=== PATIENT | male | born 1985 | race Caucasian/White ===

== ENCOUNTER 2020-12-30 05:40 | Inpatient (IN) | payer MEDICAID, SELFPAY ==
[~2020-12-30] VITALS: Ht 165.1 cm; Wt 90.3 kg
[2020-12-30 05:45] VITALS: BP 122/62
[2020-12-30] MEDS ORDERED: ONDANSETRON 4 MG/2 ML VIAL IVP ONE (05:45)
[2020-12-30] MEDS ORDERED: MORPHINE SULFATE 4 MG/ML SYR IVP ONE ×2 (05:45→07:15)
[2020-12-30 05:59] LABS: BASOPHILS # (AUTO) 0.1 K/uL (0.00-0.22); BASOPHILS % (AUTO) 0.5 % (0.0-2.0); EOSINOPHILS % (AUTO) 0.2 % (0.0-4.0); HEMATOCRIT 41.8 % (36-52); HEMOGLOBIN 14.3 g/dL (12.0-18.0); LYMPHOCYTES # (AUTO) 1.6 K/uL (2.0-11.5); LYMPHOCYTES % (AUTO) 10.7 % (20.5-51.1); MEAN CORPUSCULAR HEMOGLOBIN 29 pg (27-31); MEAN CORPUSCULAR HGB CONC 34 g/dL (33-37); MEAN CORPUSCULAR VOLUME 85.9 fL (80-94); MONOCYTES # (AUTO) 1.5 K/uL (0.8-1.0); MONOCYTES % (AUTO) 9.8 % (1.7-9.3); NEUTROPHILS # (AUTO) 11.9 K/uL (1.8-7.7); NEUTROPHILS % (AUTO) 78.8 % (42.2-75.2); PLATELET COUNT (AUTO) 365 K/uL (140-450); RED BLOOD CELL COUNT(AUTO) 4.87 MIL/uL (4.20-6.10); RED CELL DISTRIBUTION WIDTH 13.7 % (11.6-13.7); WHITE BLOOD COUNT (AUTO) 15.1 K/uL (4.8-10.8)
[2020-12-30 06:14] LABS: ALBUMIN 3.4 g/dL (3.4-5.0); ANION GAP 13.8 (8-16); CARBON DIOXIDE 25.1 mmol/L (21-32); CREATININE 1.1 mg/dL (0.6-1.3); POTASSIUM 3.9 mmol/L (3.5-5.1); TOTAL BILIRUBIN 0.6 mg/dL (0.0-1.0)
--- NOTE | 2020-12-30 06:22 | NUR ---
PT PRESENTED TO THE ED VIA DANE GILMORE OF ABDOMINAL PAIN, WITH SHARP GEN PAIN IN ABD W/ PAINSCALE OF 10 OF 10, ABD SOFT ROUND AND TENDER TO TOUCH, PT ST, NO OTHER SIGNS OF ACUTE DISTRESS NOTED NO PMH NKA
[2020-12-30] MEDS ORDERED: PIPERACILLIN/TAZOBACTAM 3.375 GM in DEXTROSE 5% 50 ML IV ONE (06:35)
[2020-12-30] MEDS ORDERED: PIPERACILLIN/TAZOBACTAM 3.375 GM VIAL IV ONE (06:37)
[2020-12-30] MEDS ORDERED: NACL 0.9% 1,000 ML IV ONE (06:40)
--- NOTE | 2020-12-30 06:47 | NUR ---
ADMINISTERED ERMD MED ORDERS
[2020-12-30 07:03] LABS: PROTHROMBIN TIME 10.2 secs (10.8-13.4)
--- NOTE | 2020-12-30 07:18 | NUR ---
LUBA SWAB DONE. WALKED TO LAB.
[2020-12-30] MEDS ORDERED: fentaNYL citrate 0.05 MG/ML VIAL ONE (07:22)
[2020-12-30] MEDS ORDERED: ROCURONIUM 50 MG/5 ML VIAL IV ONE ×2 (07:22→09:20)
[2020-12-30] MEDS ORDERED: MEPERIDINE 25 MG/ML SYR ONE (07:22)
[2020-12-30] MEDS ORDERED: LIDOCAINE MPF 2% 100 MG/5 ML VIAL INJ ONE (07:22)
[2020-12-30] MEDS ORDERED: SUCCINYLCHOLINE CHLORIDE 200 MG/10 ML VIAL IVP ONE (07:23)
[2020-12-30] MEDS ORDERED: KETOROLAC 30 MG/ML VIAL ONE (07:23)
[2020-12-30] MEDS ORDERED: METOCLOPRAMIDE 10 MG/2 ML INJ VIAL ONE (07:23)
[2020-12-30] MEDS ORDERED: ONDANSETRON 4 MG/2 ML VIAL ONE (07:23)
[2020-12-30] MEDS ORDERED: GLYCOPYRROLATE 0.2 MG/ML VIAL ONE (07:23)
[2020-12-30] MEDS ORDERED: NEOSTIGMINE 1:1000 10 MG/10 ML VIAL ONE (07:24)
[2020-12-30] MEDS ORDERED: BUPIVACAINE-MPF/EPI 0.5% 30 ML VIAL INJ ONE (07:32)
[2020-12-30] MEDS ORDERED: PROPOFOL 200 MG/20 ML VIAL IV ONE (07:46)
[2020-12-30] MEDS ORDERED: ETOMIDATE 20 MG/10 ML VIAL IVP ONE (07:46)
--- NOTE | 2020-12-30 07:51 | NUR ---
PT TAKEN TO SURGERY AT THIS TIME. CONSENT SECURED AND SIGNED.
[2020-12-30] MEDS ORDERED: MORPHINE SULFATE 4 MG/ML SYR IVP PRN (07:55)
[2020-12-30] MEDS ORDERED: SEVOFLURANE 250 ML BTL INH ONE (08:00)
[2020-12-30] MEDS ORDERED: BLOOD GLUCOSE MONITORING 1 DEV DEV FS ONE (08:45)
[2020-12-30] MEDS: LACTATED RINGERS 1,000 ML IV SCH ×2 (08:45→17:05)
[2020-12-30] MEDS ORDERED: ONDANSETRON 4 MG/2 ML VIAL IVP PRN (08:45)
[2020-12-30] MEDS ORDERED: diphenhydrAMINE 50 MG/ML VIAL IVP PRN (08:45)
[2020-12-30] MEDS ORDERED: MEPERIDINE 25 MG/ML SYR IVP PRN (08:45)
[2020-12-30] MEDS ORDERED: LORazepam 2 MG/ML VIAL IVP PRN (08:45)
[2020-12-30] MEDS ORDERED: fentaNYL citrate 0.05 MG/ML VIAL IVP PRN (08:45)
[2020-12-30] MEDS ORDERED: HYDROcodone/APAP 5/325 MG 1 TAB TAB PO PRN (09:25)
[2020-12-30] MEDS ORDERED: ACETAMINOPHEN 100 ML IV ONE (09:39)
[2020-12-30 09:50] LABS: APPEARANCE,URINE CLEAR (CLEAR); BILIRUBIN,URINE NEGATIVE (NEGATIVE); BLOOD, URINE NEGATIVE (NEGATIVE); COLOR,URINE YELLOW (YELLOW); LEUKOCYTE ESTERASE ,URINE NEGATIVE (NEGATIVE); NITRITE, URINE NEGATIVE (NEGATIVE); UGLUCOSE NEGATIVE (NEGATIVE)
[2020-12-30] MEDS ORDERED: ACETAMINOPHEN 325 MG TAB PO PRN (09:55)
[2020-12-30] MEDS ORDERED: LORazepam 2 MG/ML VIAL IM/IVP PRN (09:55)
[2020-12-30] MEDS ORDERED: ZOLPIDEM 5 MG TAB PO PRN (09:55)
[2020-12-30] MEDS ORDERED: POTASSIUM CHLORIDE 10 MEQ TABER PO PRN (09:55)
[2020-12-30] MEDS ORDERED: ACETAMINOPHEN 100 ML IV SCH (09:55)
[2020-12-30] MEDS ORDERED: MAG SULF 2000 MG/WATER PREMIX 50 ML IV PRN (09:55)
[2020-12-30] MEDS: NACL 0.9% 1,000 ML IV SCH ×2 (09:55→20:56)
[2020-12-30] MEDS ORDERED: DOCUSATE SODIUM 100 MG GELCAP PO PRN (09:55)
[2020-12-30] MEDS ORDERED: ONDANSETRON 4 MG/2 ML VIAL IM/IVP PRN (09:55)
[2020-12-30 10:55] LABS: CHOL/HDL RATIO 2.6 (1-4.5); MAGNESIUM 1.9 mg/dL (1.8-2.4); PHOSPHORUS 2.8 mg/dL (2.5-4.9); THYROID STIMULATING HORMONE 0.83 uIU/mL (0.34-3.74)
--- NOTE | 2020-12-30 10:58 | NUR ---
RECEIVED REPORT FROM OR NURSE PATIENT COMPLAINS OF ABDOMINAL PAIN AND FEBRILE WITH A DIAGNOSIS OF RUPTERED APPENDIX AND WENT DIRECTLY TO OR FOR LAPAROSCOPIC APPENDECTOMY WITH MONICA DRAIN BY DR HOLLY. PT ON NPO AND WITH NGT TO LOW INTERMITTENT SUCTION. WITH INCENTIVE SPIROMETRY AT THE BEDSIDE. IV INTACT ON LEFT AC.
[2020-12-30 11:05] VITALS: BP 96/52
--- NOTE | 2020-12-30 11:05 | NUR ---
PT BROUGHT TO THE UNIT VIA GURNEY AND VITAL SIGNS CHECK BP 96/52 NV 113 RR 20 TEMP 99.3 AND OXYGEN SAT AT 98%. ORIENTED TO ROOM AND MRSA SWAB DONE. SAFETY MEASURES IN PLACE AND CALL LIGHT WITHIN REACH. WILL CONTINUE TO MONITOR.
--- NOTE | 2020-12-30 11:30 | NUR ---
PT SEEN BY DR SAMUEL AT THIS TIME AND ADMITTED PT TO TELE FOR MONITORING PT IS SINUS TACHYCARDIA AND PT SNORES WHEN SLEEPING.DR SAMUEL AWARE.
[2020-12-30] MEDS: PIPERACILLIN/TAZOBACTAM 3.375 GM in DEXTROSE 5% 50 ML IV SCH ×2 (11:48→17:25)
[2020-12-30 12:00] VITALS: BP 107/50
--- NOTE | 2020-12-30 12:00 | NUR ---
SCHEDULED MEDICATION GIVEN AND IV FLUIDS INFUSING AT 100 MLS/HR. COLLECTED 100 ML FROM THE MONICA DRAIN.
--- NOTE | 2020-12-30 14:46 | NUR ---
PATIENT HAS BEEN SCREENED AND CATEGORIZED LOW NUTRITION RISK. PATIENT WILL BE SEEN WITHIN 7 DAYS OF ADMISSION. 01/05/[address]
--- NOTE | 2020-12-30 15:30 | NUR ---
COLLECTED 100 ML OF FLUID FROM THE MONICA DRAIN.
[2020-12-30 16:00] VITALS: BP 117/74
--- NOTE | 2020-12-30 17:20 | NUR ---
PT HAVE A FEVER 102.1 MEDICATION GIVEN, PT IS RESTING. COOLING MEASURES DONE.
--- NOTE | 2020-12-30 17:26 | NUR ---
IV ANTIBIOTIC ZOSYN 3.375 MG GIVEN INFUSING WELL DENIES ANY PAIN PT IS SLEEPING.
--- NOTE | 2020-12-30 19:00 | NUR ---
ENDORSED TO NIGHT NURSE DAMIEN FOR CONTINUITY OF CARE. PT IS STABLE.
--- NOTE | 2020-12-30 19:30 | NUR ---
PATIENT RECIEVED IN BED. ALERT AND ORIENTED X 4. PT COMPLAINS OF ABDOMINAL PAIN, 04/09. REPOSITIONED WITH SUPPORTIVE PILLOWS. EFFECTIVE AT THIS TIME. PATIENT DIAGNOSIS OF RUPTURED APPENDIX AND LAPAROSCOPIC APPENDECTOMY WITH MONICA DRAIN PER DR HOLLY. PT ON NPO AND WITH NGT TO LOW INTERMITTENT SUCTION. WITH INCENTIVE SPIROMETRY AT THE BEDSIDE. PATIENT SEEN AND EVALUATED BY RT. RN DISCUSSED WITH PATIENT MEDICAL MANAGEMENT, FALL AND SAFETY INTERVENTION AND MEDICATION REGIMEN. IV INTACT ON LEFT AC. PATIENT RECEPTIVE TO RN INSTRUCTIONS. NO ACUTE DISTRESS NOTED.
[2020-12-30 20:00] VITALS: BP 100/52
--- NOTE | 2020-12-30 20:17 | NUR ---
PT WOKE UP UPON MY ARRIVAL TO BEDSIDE AND PERFORMED I.S. W/ WHAT APPEARED TO BE MINIMAL EFFORT X3 BREATHS W/ 800mL
--- NOTE | 2020-12-30 20:55 | NUR ---
PATIENT COMPLAINT OF INCREASING ANXIETY AND AGITATION. PT MEDICATED WITH PT IS STABLE IN BED WITH NO ACUTE S/S OF DISTRESS. PT RESPONDS NODDING HIS HEAD. THAT ALL NEEDS ARE MET AT THIS TIME. PT SATING AT 97% ALL SAFETY MEASURES IN PLACE, CALL LIGHT WITHIN REACH. WILL CONTINUE TO MONITOR. NO ACUTE DISTRESS NOTED.
[2020-12-31] VITALS: BP 98/60
[2020-12-31] MEDS: PIPERACILLIN/TAZOBACTAM 3.375 GM in DEXTROSE 5% 50 ML IV SCH ×5 (02:02→23:25)
[2020-12-31] MEDS: LACTATED RINGERS 1,000 ML IV SCH ×2 (02:05→08:51)
[2020-12-31] MEDS: MORPHINE SULFATE 4 MG/ML SYR IVP PRN ×4 (02:34→22:27)
[2020-12-31 03:38] VITALS: BP 102/72
--- NOTE | 2020-12-31 04:00 | NUR ---
PATIENT MEDICATED WITH ATIVAN. PATIENT COMPLAINT OF AGITATION AND FRUSTRATION WITH HIS CURRENT CONDITION. RN DISCUSSED WITH PATIENT PURPOSE OF CALM QUIET ENVIRONMENT. DISCUSSED WITH PATIENT MEDICATION REGIMEN ACTION. ASSISTED WITH ADLS AND TRANSFERS. NO ACUTE DISTRESS NOTED.
[2020-12-31] MEDS: NACL 0.9% 1,000 ML IV SCH (06:00)
[2020-12-31 06:25] LABS: BASOPHILS % (AUTO) 0.2 % (0.0-2.0); EOSINOPHILS % (AUTO) 0.1 % (0.0-4.0); HEMATOCRIT 41.1 % (36-52); HEMOGLOBIN 13.8 g/dL (12.0-18.0); LYMPHOCYTES # (AUTO) 1.1 K/uL (2.0-11.5); LYMPHOCYTES % (AUTO) 8.5 % (20.5-51.1); MEAN CORPUSCULAR HEMOGLOBIN 30 pg (27-31); MEAN CORPUSCULAR HGB CONC 34 g/dL (33-37); MEAN CORPUSCULAR VOLUME 87.4 fL (80-94); MONOCYTES # (AUTO) 1.2 K/uL (0.8-1.0); MONOCYTES % (AUTO) 9.4 % (1.7-9.3); NEUTROPHILS # (AUTO) 10.4 K/uL (1.8-7.7); NEUTROPHILS % (AUTO) 81.8 % (42.2-75.2); PLATELET COUNT (AUTO) 344 K/uL (140-450); RED CELL DISTRIBUTION WIDTH 14.1 % (11.6-13.7); WHITE BLOOD COUNT (AUTO) 12.8 K/uL (4.8-10.8)
[2020-12-31 06:40] LABS: MAGNESIUM 2.1 mg/dL (1.8-2.4); PHOSPHORUS 2.6 mg/dL (2.5-4.9)
[2020-12-31 06:41] LABS: ANION GAP 14.3 (8-16); CARBON DIOXIDE 24.5 mmol/L (21-32); POTASSIUM 3.8 mmol/L (3.5-5.1)
--- NOTE | 2020-12-31 07:20 | NUR ---
RECEIVED REPORT FROM FROM ASSISTANT TERMINAL MANAGER NURSE FOR CONTINUITY OF CARE. PATIENT AWAKE AND ALERT. PATIENT STATED HE HAS PAIN IN THE ABDOMEN. MORPHINE GIVEN.
--- NOTE | 2020-12-31 07:30 | NUR ---
PATIENT AWAKE AND ALERT. PATIENT STATED FEELING NAUSEOUS. PATIENT PULLED OUT NG TUBE AND BEGAN TO VOMIT. DR SAMUEL NOTIFIED. PATIENT STATED HE FELT ALLEVIATED AFTERWARD.
--- NOTE | 2020-12-31 07:35 | NUR ---
PER DR JIMMIE HAYES TO REINSERT NG TUBE.
[2020-12-31 08:00] VITALS: BP 150/86
--- NOTE | 2020-12-31 09:15 | NUR ---
PATIENT AWAKE AND ALERT. NO ACUTE DISTRESS NOTED. CALL LIGHT WITHIN REACH. SAFETY MEASURES IN PLACE. WILL CONTINUE TO MONITOR.
[2020-12-31] MEDS ORDERED: NACL 0.9% 1,000 ML IV SCH (11:05)
--- NOTE | 2020-12-31 11:05 | NUR ---
DC PLANNING: THE PATIENT HAD A LAP APPY YESTERDAY WITH PLACEMENT OF A ELIZABETH DRAIN. DRAIN OP TODAY 650 ML. PATIENT STARTED ON CLEAR LIQ DIET AND IS TOLERATING, WBC'S TO 12.8. CM SPOKE WITH THE PATIENT AT BEDSIDE, HE LIVES IN A SECOND STORY APARTMENT WITH HIS BROTHER, HE IS CURRENTLY UNEMPLOYED WITH NO INCOME SOURCE, AND DOES NOT HAVE A PCP AT PRESENT. THE PATIENT IS INDEPENDENT IN ALL ACTIVITIES, THE DC PLAN IS FOR HIM TO RETURN HOME WITH FAMILY. CM WILL FOLLOW FOR NEEDS.
--- NOTE | 2020-12-31 11:20 | NUR ---
PATIENT AWAKE AND ALERT. NO ACUTE DISTRESS NOTED. PATIENT DENIES PAIN AT THIS TIME. CALL LIGHT WITHIN REACH. SAFETY MEASURES IN PLACE. WILL CONTINUE TO MONITOR.
[2020-12-31] MEDS ORDERED: MAGNESIUM HYDROXIDE 2400 MG/30 ML UDC PO SCH (11:30)
[2020-12-31 12:00] VITALS: BP 137/87
--- NOTE | 2020-12-31 13:19 | NUR ---
PATIENT SLEEPING. NO ACUTE DISTRESS NOTED. BREATHING EVEN AND UNLABORED. MOM AT BEDSIDE. CALL LIGHT WITHIN REACH. SAFETY MEASURES IN PLACE. WILL CONTINUE TO MONITOR.
[2020-12-31] MEDS: POTASSIUM CHL 20 MEQ/D5-1/2NS 1,000 ML IV SCH ×2 (13:39→20:25)
--- NOTE | 2020-12-31 15:16 | NUR ---
PATIENT SLEEPING. NO ACUTE DISTRESS NOTED. BREATHING EVEN AND UNLABORED. MOM AT BEDSIDE. CALL LIGHT WITHIN REACH. SAFETY MEASURES IN PLACE. WILL CONTINUE TO MONITOR.
[2020-12-31 16:00] VITALS: BP 132/89
[2020-12-31 16:35] LABS: T4 (THYROXINE) 8.1 ug/dL (4.5 - 12.0)
--- NOTE | 2020-12-31 17:59 | NUR ---
PATIENT AWAKE AND ALERT. NO ACUTE DISTRESS NOTED. PATIENT DENIES PAIN AT THIS TIME. CALL LIGHT WITHIN REACH. SAFETY MEASURES IN PLACE. WILL CONTINUE TO MONITOR.
--- NOTE | 2020-12-31 18:50 | NUR ---
PATIENT WAS TAKEN BY IMAGING TO COMPLETE HIS CT CHEST ANGIOGRAM
--- NOTE | 2020-12-31 19:48 | NUR ---
ENDORSED TO NIGHT NURSE FOR CONTINUITY OF CARE. PATIENT BACK FROM IMAGING. PATIENT ALERT AND AWAKE. NO ACUTE DISTRESS NOTED. CALL LIGHT WITHIN REACH. SAFETY MEASURES IN PLACE.
[2020-12-31 20:00] VITALS: BP 160/84
--- NOTE | 2020-12-31 20:00 | NUR ---
RECEIVED REPORT FROM RACHAEL RN. PATIENT IS RESTING. NO S/S OF DISTRESS. RESPIRATION EVEN UNLABORED. IVF NS WITH 20 MEQ KCL RUNNING AT 125 ML/HR. CALL LIGHT WITHIN REACH. NO COMPLAINTS OF PAIN AT THIS TIME. ALL SAFETY MEASURES ARE IN PLACE. WILL CONTINUE TO MONITOR.
--- NOTE | 2020-12-31 22:20 | NUR ---
ALL NEEDS ATTENDED TO. CALL LIGHT WITHIN REACH.
--- NOTE | 2020-12-31 23:25 | NUR ---
ZOSYN GIVEN SCHEDULED PER MD ORDERED.
[2021-01-01] VITALS: BP 139/88
--- NOTE | 2021-01-01 00:32 | NUR ---
ROUNDED PATIENT. PT IS SLEEPING. BREATHING REGULAR NON LABORED. CALL LIGHT WITHIN REACH.
[2021-01-01 04:00] VITALS: BP 156/73
[2021-01-01] MEDS: POTASSIUM CHL 20 MEQ/D5-1/2NS 1,000 ML IV SCH ×2 (04:25→12:25)
[2021-01-01] MEDS: MORPHINE SULFATE 4 MG/ML SYR IVP PRN (05:17)
--- NOTE | 2021-01-01 05:17 | NUR ---
PATIENT COMPLAINED OF SEVERE ABDOMINAL PAIN 10/07. MORPHINE 4MG PRN IVP GIVEN ORDERED AND WAS EFFECTIVE.
[2021-01-01] MEDS: PIPERACILLIN/TAZOBACTAM 3.375 GM in DEXTROSE 5% 50 ML IV SCH ×2 (05:22→15:11)
[2021-01-01 06:53] LABS: ANION GAP 11.6 (8-16); BASOPHILS % (AUTO) 0.1 % (0.0-2.0); CARBON DIOXIDE 28.3 mmol/L (21-32); CREATININE 0.8 mg/dL (0.6-1.3); EOSINOPHILS # (AUTO) 0.3 K/uL (0-0.4); EOSINOPHILS % (AUTO) 2.6 % (0.0-4.0); HEMATOCRIT 34.4 % (36-52); HEMOGLOBIN 11.6 g/dL (12.0-18.0); LYMPHOCYTES % (AUTO) 8.4 % (20.5-51.1); MEAN CORPUSCULAR HEMOGLOBIN 29 pg (27-31); MEAN CORPUSCULAR HGB CONC 34 g/dL (33-37); MEAN CORPUSCULAR VOLUME 86.7 fL (80-94); MONOCYTES # (AUTO) 1.1 K/uL (0.8-1.0); MONOCYTES % (AUTO) 8.5 % (1.7-9.3); NEUTROPHILS % (AUTO) 80.4 % (42.2-75.2); PLATELET COUNT (AUTO) 327 K/uL (140-450); POTASSIUM 3.9 mmol/L (3.5-5.1); RED BLOOD CELL COUNT(AUTO) 3.96 MIL/uL (4.20-6.10); RED CELL DISTRIBUTION WIDTH 13.6 % (11.6-13.7); WHITE BLOOD COUNT (AUTO) 12.5 K/uL (4.8-10.8)
[2021-01-01 07:01] LABS: PHOSPHORUS 1.4 mg/dL (2.5-4.9)
--- NOTE | 2021-01-01 07:10 | NUR ---
RECEIVED REPORT FROM MARKETING CLERK NURSE FOR CONTINUITY OF CARE. PATIENT SLEEPING. BREATHING EVEN AND UNLABORED. NO ACUTE DISTRESS NOTED. CALL LIGHT WITHIN REACH. SAFETY MEASURES IN PLACE. WILL CONTINUE TO MONITOR.
--- NOTE | 2021-01-01 07:15 | NUR ---
ENDORSED PATIENT TO AM NURSE FOR CONTINUITY OF CARE. PT. IS STABLE.
[2021-01-01 08:00] VITALS: BP 140/81
--- NOTE | 2021-01-01 09:20 | NUR ---
PATIENT SLEEPING. NO ACUTE DISTRESS NOTED. PATIENT BREATHING EVEN AND UNLABORED. ALL SAFETY MEASURES IN PLACE. CALL LIGHT WITHIN REACH. WILL CONTINUE TO MONITOR.
[2021-01-01] MEDS ORDERED: MORPHINE SULFATE 2 MG/ML SYR IVP PRN (10:05)
[2021-01-01] MEDS ORDERED: METR-520 PO (10:27)
[2021-01-01] MEDS ORDERED: DOCU-299 PO (10:27)
[2021-01-01] MEDS ORDERED: LEVO750T51 PO (10:27)
--- NOTE | 2021-01-01 11:18 | NUR ---
PATIENT SLEEPING. NO ACUTE DISTRESS NOTED. PATIENT BREATHING EVEN AND UNLABORED. MOTHER AT BEDSIDE. ALL SAFETY MEASURES IN PLACE. CALL LIGHT WITHIN REACH. WILL CONTINUE TO MONITOR.
[2021-01-01] MEDS ORDERED: POTASSIUM PHOSPHATE 15 MM in NACL 0.9% 250 ML IV SCH (11:30)
[2021-01-01] MEDS ORDERED: bisacodyL 10 MG SUPP RC SCH (11:35)
[2021-01-01 12:00] VITALS: BP 150/71
--- NOTE | 2021-01-01 13:36 | NUR ---
LATE ENTRY- PIPERACILLIN IVPB DISCONTINUED AT 0751. NORMAL SALINE 0.9% DISCONTINUED AT 0751.
--- NOTE | 2021-01-01 13:49 | NUR ---
PATIENT AWAKE AND ALERT. NO ACUTE DISTRESS NOTED. PATIENT HAD LARGE BM. PATIENT DENIES PAIN AT THIS TIME. MOTHER AT BEDSIDE. ALL SAFETY MEASURES IN PLACE. CALL LIGHT WITHIN REACH. WILL CONTINUE TO MONITOR.
--- NOTE | 2021-01-01 15:08 | NUR ---
DR. HOLLY AT BEDSIDE. DOCTOR PULLED OUT MONICA DRAIN.
[2021-01-01 16:00] VITALS: BP 139/89
--- NOTE | 2021-01-01 16:18 | NUR ---
PATIENT AWAKE AND ALERT. NO ACUTE DISTRESS NOTED. PATIENT BREATHING EVEN AND UNLABORED. PATIENT DENIES PAIN AT THIS TIME. ALL SAFETY MEASURES IN PLACE. CALL LIGHT WITHIN REACH. WILL CONTINUE TO MONITOR.
--- NOTE | 2021-01-01 17:50 | NUR ---
PATIENT AWAKE AND ALERT. NO ACUTE DISTRESS NOTED. PATIENT DISCHARGE INFORMATION GIVEN. PATIENT SIGNED ALL DISCHARGE PAPERS AND VERBALIZE UNDERSTANDING. IV AND WRIST BAND REMOVED. IV CATHETER INTACT. PATIENT TOOK ALL PERSONAL BELONGINGS. PATIENT WHEELED TO FRONT LOBBY VIA WHEELCHAIR. PATIENT PICKED UP BY BROTHER.
== END 2021-01-01 17:45 | disposition home or self-care (01) | DRG 710 ==
LOC: MED 05:40 → MTU 07:58
PROC: 3E1M38Z Irrigation of Peritoneal Cavity using Irrigating Substance, Percutaneous Approach (ICD-10-PCS; 2020-12-30)
PROC: 0DTJ4ZZ Resection of Appendix, Percutaneous Endoscopic Approach (ICD-10-PCS; principal; 2020-12-30 07:30)
DX: A41.9 Sepsis, unspecified organism (principal); K35.32 Acute appendicitis with perforation, localized peritonitis, and gangrene, without abscess; E87.1 Hypo-osmolality and hyponatremia; K80.20 Calculus of gallbladder without cholecystitis without obstruction; F15.90 Other stimulant use, unspecified, uncomplicated; E86.0 Dehydration; Z20.822 Contact with and (suspected) exposure to COVID-19; E66.9 Obesity, unspecified; Z68.33 Body mass index [BMI] 33.0-33.9, adult
CPT/HCPCS: 36415; 71045; 71275; 80048; 80053; 81003; 82150; 83036; 83690; 83735; 83880; 84100; 84134; 84436; 84443; 85025; 85610; 85730; 86886; 86900; 86901; 87070; 87075; 87081; 87205; 93005; 96365; 96375; 99285; J0330; J1885; J2001; J2175; J2270; J2405; J2543; J2704; J2710; J2765; J3010; J3490; J7030; J7060; J7120; Q0092; Q9967

== ENCOUNTER 2021-01-04 18:37 | Inpatient (IN) | payer MEDICAID, SELFPAY ==
[~2021-01-04] VITALS: Ht 165.1 cm; Wt 91.2 kg
[2021-01-04 18:37] VITALS: BP 132/89
[~2021-01-04 18:37] MED LIST: DOCU-299 PO; LEVO750T51 PO; METR-520 PO
[2021-01-04] MEDS ORDERED: MORPHINE SULFATE 4 MG/ML SYR IVP ONE ×2 (18:55→22:30)
[2021-01-04] MEDS ORDERED: NACL 0.9% 1,000 ML IV ONE (18:55)
[2021-01-04 19:01] LABS: BASOPHILS % (AUTO) 0.4 % (0.0-2.0); EOSINOPHILS # (AUTO) 0.2 K/uL (0-0.4); EOSINOPHILS % (AUTO) 2.4 % (0.0-4.0); HEMATOCRIT 37.2 % (36-52); HEMOGLOBIN 12.3 g/dL (12.0-18.0); LYMPHOCYTES # (AUTO) 1.7 K/uL (2.0-11.5); LYMPHOCYTES % (AUTO) 16.6 % (20.5-51.1); MEAN CORPUSCULAR HEMOGLOBIN 29 pg (27-31); MEAN CORPUSCULAR HGB CONC 33 g/dL (33-37); MONOCYTES # (AUTO) 1.6 K/uL (0.8-1.0); MONOCYTES % (AUTO) 16.1 % (1.7-9.3); NEUTROPHILS # (AUTO) 6.5 K/uL (1.8-7.7); NEUTROPHILS % (AUTO) 64.5 % (42.2-75.2); PLATELET COUNT (AUTO) 476 K/uL (140-450); RED BLOOD CELL COUNT(AUTO) 4.32 MIL/uL (4.20-6.10); WHITE BLOOD COUNT (AUTO) 10.1 K/uL (4.8-10.8)
[2021-01-04 19:23] LABS: ANION GAP 16.6 (8-16); CARBON DIOXIDE 25.6 mmol/L (21-32); CREATININE 0.8 mg/dL (0.6-1.3); POTASSIUM 3.2 mmol/L (3.5-5.1)
[2021-01-04 19:29] LABS: ALBUMIN 2.5 g/dL (3.4-5.0); TOTAL BILIRUBIN 0.3 mg/dL (0.0-1.0)
[2021-01-04] MEDS ORDERED: NACL 0.9% 1,000 ML IV SCH (20:25)
[2021-01-04] MEDS ORDERED: ONDANSETRON 4 MG/2 ML VIAL IVP ONE (20:25)
[2021-01-04] MEDS ORDERED: PIPERACILLIN/TAZOBACTAM 3.375 GM in DEXTROSE 5% 50 ML IV ONE (22:30)
[2021-01-04] MEDS ORDERED: PIPERACILLIN/TAZOBACTAM 3.375 GM VIAL IV ONE (22:34)
[2021-01-05] MEDS ORDERED: DEXT 5% / NACL 0.9% 500 ML IV SCH (00:30)
[2021-01-05] MEDS ORDERED: DEXT 5% /NACL 0.9% 1,000 ML IV SCH (01:00)
[2021-01-05] MEDS ORDERED: MORPHINE SULFATE 4 MG/ML SYR IVP ONE (02:10)
[2021-01-05] MEDS ORDERED: PIPERACILLIN/TAZOBACTAM 3.375 GM VIAL IV ONE (05:07)
[2021-01-05] MEDS: PIPERACILLIN/TAZOBACTAM 3.375 GM in DEXTROSE 5% 50 ML IV SCH ×3 (05:51→18:15)
[2021-01-05] MEDS ORDERED: ZOLPIDEM 5 MG TAB PO PRN (07:50)
[2021-01-05] MEDS ORDERED: DOCUSATE SODIUM 100 MG GELCAP PO PRN (07:50)
[2021-01-05] MEDS: DEXT 5% /NACL 0.9% 1,000 ML IV SCH ×3 (07:50→21:38)
[2021-01-05] MEDS ORDERED: POTASSIUM CHLORIDE 40 MEQ, LIDOCAINE MPF 1% 25 MG in NACL 0.9% 250 ML IV PRN (07:50)
[2021-01-05] MEDS ORDERED: ONDANSETRON 4 MG/2 ML VIAL IM/IVP PRN (07:50)
[2021-01-05] MEDS ORDERED: ACETAMINOPHEN 325 MG TAB PO PRN (07:50)
[2021-01-05] MEDS ORDERED: MORPHINE SULFATE 2 MG/ML SYR IVP PRN (07:50)
[2021-01-05] MEDS ORDERED: guaiFENesin DM 200/20 MG-10 ML 10 ML UDC PO PRN (07:50)
[2021-01-05] MEDS ORDERED: HYDROcodone/APAP 7.5/325 MG 1 TAB PO PRN (07:50)
[2021-01-05 08:54] LABS: PROTHROMBIN TIME 9.8 secs (10.8-13.4)
[2021-01-05 08:58] LABS: CHOL/HDL RATIO 7.3 (1-4.5); FREE T4 (FREE THYROXINE) 1.24 ng/dL (0.76-1.46); MAGNESIUM 1.6 mg/dL (1.8-2.4); PHOSPHORUS 3.6 mg/dL (2.5-4.9); THYROID STIMULATING HORMONE 1.25 uIU/mL (0.34-3.74)
[2021-01-05] MEDS ORDERED: MAG SULF 2000 MG/WATER PREMIX 50 ML IV SCH (10:00)
[2021-01-05] MEDS: PANTOPRAZOLE 40 MG INJ VIAL IVP SCH (10:01)
[2021-01-05 12:00] VITALS: BP 136/78
[2021-01-05] MEDS ORDERED: fentaNYL citrate 0.05 MG/ML VIAL ONE (12:54)
[2021-01-05] MEDS ORDERED: LIDOCAINE 2% 1000 MG/50 ML VIAL INJ ONE (12:54)
[2021-01-05] MEDS ORDERED: MIDAZOLAM 5 MG/5 ML VIAL ONE (12:54)
[2021-01-05] MEDS: CLINDAMYCIN 600 MG in DEXTROSE 5% 50 ML IV SCH ×2 (13:00→20:21)
[2021-01-05 16:00] VITALS: BP 136/69
[2021-01-05 20:00] VITALS: BP 136/80
[2021-01-06] VITALS: BP 122/73
[2021-01-06] MEDS: PIPERACILLIN/TAZOBACTAM 3.375 GM in DEXTROSE 5% 50 ML IV SCH ×4 (00:16→18:35)
[2021-01-06 04:00] VITALS: BP 125/84
[2021-01-06] MEDS: DEXT 5% /NACL 0.9% 1,000 ML IV SCH ×3 (04:32→18:58)
[2021-01-06] MEDS: CLINDAMYCIN 600 MG in DEXTROSE 5% 50 ML IV SCH ×3 (05:10→20:29)
[2021-01-06 06:32] LABS: BASOPHILS # (AUTO) 0.1 K/uL (0.00-0.22); BASOPHILS % (AUTO) 0.5 % (0.0-2.0); EOSINOPHILS # (AUTO) 0.2 K/uL (0-0.4); EOSINOPHILS % (AUTO) 1.4 % (0.0-4.0); HEMATOCRIT 33.7 % (36-52); HEMOGLOBIN 11.3 g/dL (12.0-18.0); LYMPHOCYTES # (AUTO) 1.6 K/uL (2.0-11.5); LYMPHOCYTES % (AUTO) 12.8 % (20.5-51.1); MEAN CORPUSCULAR HEMOGLOBIN 29 pg (27-31); MEAN CORPUSCULAR HGB CONC 34 g/dL (33-37); MEAN CORPUSCULAR VOLUME 85.5 fL (80-94); MONOCYTES # (AUTO) 1.3 K/uL (0.8-1.0); MONOCYTES % (AUTO) 10.5 % (1.7-9.3); NEUTROPHILS # (AUTO) 9.5 K/uL (1.8-7.7); NEUTROPHILS % (AUTO) 74.8 % (42.2-75.2); PLATELET COUNT (AUTO) 493 K/uL (140-450); RED BLOOD CELL COUNT(AUTO) 3.94 MIL/uL (4.20-6.10); RED CELL DISTRIBUTION WIDTH 14.1 % (11.6-13.7); WHITE BLOOD COUNT (AUTO) 12.7 K/uL (4.8-10.8)
[2021-01-06 08:00] VITALS: BP 143/78
[2021-01-06] MEDS: PANTOPRAZOLE 40 MG INJ VIAL IVP SCH (08:03)
[2021-01-06 08:07] LABS: T4 (THYROXINE) 9.4 ug/dL (4.5-12.0)
[2021-01-06 09:09] LABS: ANION GAP 10.3 (8-16); CARBON DIOXIDE 28.2 mmol/L (21-32); CREATININE 0.7 mg/dL (0.6-1.3); POTASSIUM 3.5 mmol/L (3.5-5.1)
[2021-01-06 12:00] VITALS: BP 126/78
[2021-01-06 16:00] VITALS: BP 132/72
[2021-01-06 20:00] VITALS: BP 128/74
[2021-01-07] VITALS: BP 119/73
[2021-01-07] MEDS: PIPERACILLIN/TAZOBACTAM 3.375 GM in DEXTROSE 5% 50 ML IV SCH ×4 (00:26→18:45)
[2021-01-07] MEDS: DEXT 5% /NACL 0.9% 1,000 ML IV SCH ×4 (01:14→21:56)
[2021-01-07 04:00] VITALS: BP 125/66
[2021-01-07] MEDS: CLINDAMYCIN 600 MG in DEXTROSE 5% 50 ML IV SCH ×3 (05:00→21:00)
[2021-01-07 07:12] LABS: HEMATOCRIT 34.3 % (36-52); HEMOGLOBIN 11.3 g/dL (12.0-18.0); MEAN CORPUSCULAR HEMOGLOBIN 29 pg (27-31); MEAN CORPUSCULAR HGB CONC 33 g/dL (33-37); MEAN CORPUSCULAR VOLUME 86.5 fL (80-94); PLATELET COUNT (AUTO) 473 K/uL (140-450); RED BLOOD CELL COUNT(AUTO) 3.97 MIL/uL (4.20-6.10); RED CELL DISTRIBUTION WIDTH 13.9 % (11.6-13.7); WHITE BLOOD COUNT (AUTO) 11.7 K/uL (4.8-10.8)
[2021-01-07 08:00] VITALS: BP 118/60
[2021-01-07] MEDS: PANTOPRAZOLE 40 MG INJ VIAL IVP SCH (08:36)
[2021-01-07 11:26] LABS: ANION GAP 13.1 (8-16); CARBON DIOXIDE 24.5 mmol/L (21-32); CREATININE 0.7 mg/dL (0.6-1.3); POTASSIUM 3.6 mmol/L (3.5-5.1)
[2021-01-07 11:30] LABS: LYMPHOCYTES % (MANUAL) 17 % (20-46)
[2021-01-07 11:31] LABS: EOSINOPHILS % (MANUAL) 2 % (0-4); MONOCYTES % (MANUAL) 10 % (5-12)
[2021-01-07 12:00] VITALS: BP 118/72
[2021-01-08] VITALS: BP 121/78
[2021-01-08] MEDS: PIPERACILLIN/TAZOBACTAM 3.375 GM in DEXTROSE 5% 50 ML IV SCH ×4 (00:26→18:22)
[2021-01-08 06:41] LABS: ANION GAP 9.1 (8-16); CARBON DIOXIDE 25.4 mmol/L (21-32); CREATININE 0.8 mg/dL (0.6-1.3); POTASSIUM 3.5 mmol/L (3.5-5.1)
[2021-01-08 06:55] LABS: BASOPHILS % (AUTO) 0.4 % (0.0-2.0); EOSINOPHILS # (AUTO) 0.3 K/uL (0-0.4); HEMATOCRIT 34.4 % (36-52); HEMOGLOBIN 11.3 g/dL (12.0-18.0); LYMPHOCYTES # (AUTO) 2.1 K/uL (2.0-11.5); LYMPHOCYTES % (AUTO) 18.6 % (20.5-51.1); MEAN CORPUSCULAR HEMOGLOBIN 29 pg (27-31); MEAN CORPUSCULAR HGB CONC 33 g/dL (33-37); MEAN CORPUSCULAR VOLUME 87.2 fL (80-94); MONOCYTES # (AUTO) 1.2 K/uL (0.8-1.0); MONOCYTES % (AUTO) 10.5 % (1.7-9.3); NEUTROPHILS # (AUTO) 7.6 K/uL (1.8-7.7); NEUTROPHILS % (AUTO) 67.5 % (42.2-75.2); PLATELET COUNT (AUTO) 563 K/uL (140-450); RED BLOOD CELL COUNT(AUTO) 3.94 MIL/uL (4.20-6.10); RED CELL DISTRIBUTION WIDTH 14.2 % (11.6-13.7); WHITE BLOOD COUNT (AUTO) 11.3 K/uL (4.8-10.8)
[2021-01-08] MEDS: DEXT 5% /NACL 0.9% 1,000 ML IV SCH ×3 (07:00→19:54)
[2021-01-08 08:00] VITALS: BP 127/79
[2021-01-08] MEDS: PANTOPRAZOLE 40 MG INJ VIAL IVP SCH (08:32)
[2021-01-08 16:00] VITALS: BP 110/65
[2021-01-09] VITALS: BP 109/65
[2021-01-09] MEDS: PIPERACILLIN/TAZOBACTAM 3.375 GM in DEXTROSE 5% 50 ML IV SCH ×2 (00:18→06:25)
[2021-01-09] MEDS: DEXT 5% /NACL 0.9% 1,000 ML IV SCH ×2 (01:40→08:26)
[2021-01-09 06:51] LABS: BASOPHILS # (AUTO) 0.1 K/uL (0.00-0.22); BASOPHILS % (AUTO) 0.7 % (0.0-2.0); EOSINOPHILS # (AUTO) 0.3 K/uL (0-0.4); EOSINOPHILS % (AUTO) 2.6 % (0.0-4.0); HEMATOCRIT 35.2 % (36-52); HEMOGLOBIN 11.9 g/dL (12.0-18.0); LYMPHOCYTES # (AUTO) 1.9 K/uL (2.0-11.5); LYMPHOCYTES % (AUTO) 20.4 % (20.5-51.1); MEAN CORPUSCULAR HEMOGLOBIN 29 pg (27-31); MEAN CORPUSCULAR HGB CONC 34 g/dL (33-37); MEAN CORPUSCULAR VOLUME 86.1 fL (80-94); MONOCYTES # (AUTO) 0.9 K/uL (0.8-1.0); MONOCYTES % (AUTO) 9.6 % (1.7-9.3); NEUTROPHILS # (AUTO) 6.3 K/uL (1.8-7.7); NEUTROPHILS % (AUTO) 66.7 % (42.2-75.2); PLATELET COUNT (AUTO) 620 K/uL (140-450); RED BLOOD CELL COUNT(AUTO) 4.09 MIL/uL (4.20-6.10); RED CELL DISTRIBUTION WIDTH 14.3 % (11.6-13.7); WHITE BLOOD COUNT (AUTO) 9.5 K/uL (4.8-10.8)
[2021-01-09 08:00] VITALS: BP 127/77
[2021-01-09] MEDS: PANTOPRAZOLE 40 MG INJ VIAL IVP SCH (08:28)
[2021-01-09] MEDS ORDERED: LEVO750T51 PO (10:14)
[2021-01-09] MEDS ORDERED: AMOX-999 PO (10:14)
[2021-01-09 11:05] LABS: ANION GAP 11.5 (8-16); CARBON DIOXIDE 26.5 mmol/L (21-32); CREATININE 0.8 mg/dL (0.6-1.3)
== END 2021-01-09 11:57 | disposition home or self-care (01) | DRG 710 ==
LOC: MED 18:37 → MTU 01-05 00:28
PROVIDERS: ADMIT Family Medicine; ATTEND Family Medicine
PROC: 0W9J3ZX Drainage of Pelvic Cavity, Percutaneous Approach, Diagnostic (ICD-10-PCS; principal; 2021-01-05)
DX: A41.9 Sepsis, unspecified organism (principal); K65.1 Peritoneal abscess; E43 Unspecified severe protein-calorie malnutrition; K56.609 Unspecified intestinal obstruction, unspecified as to partial versus complete obstruction; D68.59 Other primary thrombophilia; E87.6 Hypokalemia; Z20.822 Contact with and (suspected) exposure to COVID-19; K59.00 Constipation, unspecified; R71.0 Precipitous drop in hematocrit; Z79.01 Long term (current) use of anticoagulants; Z79.899 Other long term (current) drug therapy; Z68.33 Body mass index [BMI] 33.0-33.9, adult; Z90.49 Acquired absence of other specified parts of digestive tract
CPT/HCPCS: 36415; 71045; 75989; 80048; 80053; 82150; 83036; 83690; 83735; 83880; 84100; 84436; 84439; 84443; 84479; 84484; 85025; 85610; 85730; 87040; 87070; 87075; 87081; 87205; 96361; 96365; 96375; 97116; 99285; C1729; C9113; J2001; J2250; J2270; J2405; J2543; J3010; J3475; J3490; J7060; Q0092; Q9967

== ENCOUNTER 2021-02-08 13:37 | Emergency (ER) | payer MEDICAID, SELFPAY ==
[~2021-02-08] VITALS: Ht 165.1 cm; Wt 86.2 kg
[~2021-02-08 13:37] MED LIST changes: +AMOX-999 PO; -DOCU-299 PO; -METR-520 PO
[2021-02-08 14:09] VITALS: BP 129/80
--- NOTE | 2021-02-08 14:29 | NUR ---
PATIENT AMBULATED TO BED 12.
--- NOTE | 2021-02-08 14:56 | NUR ---
PT PLACED ON COMMERCIAL DOOR INSTALLER AND PUT INTO GOWN
--- NOTE | 2021-02-08 14:56 | NUR ---
35 Y/O MALE C/O ABD PAIN 5/10 DESCRIBES SHARP WORST WITH PUSHING X4DAYS. PT STATES HE HAD AN APPY [id number] AGO AND IS NOW HAVING PAIN. DENIES N/V/D, DENIES FEVER/CHILLS. ABDOMEN IS TENDER UPON PALPATION, BUT BOWEL SOUNDS ARE ACTIVE AT THIS TIME. PT DENIES ANY CHEST PAIN/SOB. SKIN DRY AND INTACT AT THIS TIME. PMH: APPY X1 MONTH AGO NKA
--- NOTE | 2021-02-08 15:01 | NUR ---
COVID LUBA AND INFLUENZA SWAB COLLECTED AND HANDED TO TECHNICAL HEALTHCARE CONSULTANT BEDSIDE
--- NOTE | 2021-02-08 15:01 | NUR ---
LAB BEDSIDE COLLECTING BLOODWORK
--- NOTE | 2021-02-08 15:09 | NUR ---
DR. DURAND BEDSIDE EVALUATING PT
[2021-02-08] MEDS ORDERED: KETOROLAC 30 MG/ML VIAL IVP ONE (15:15)
--- NOTE | 2021-02-08 15:18 | NUR ---
XRAY AT PATIENT BEDSIDE
[2021-02-08 15:22] LABS: BASOPHILS % (AUTO) 0.3 % (0.0-2.0); EOSINOPHILS % (AUTO) 0.7 % (0.0-4.0); HEMATOCRIT 40.3 % (36-52); HEMOGLOBIN 13.4 g/dL (12.0-18.0); LYMPHOCYTES # (AUTO) 2.1 K/uL (2.0-11.5); LYMPHOCYTES % (AUTO) 32.8 % (20.5-51.1); MEAN CORPUSCULAR HEMOGLOBIN 29 pg (27-31); MEAN CORPUSCULAR HGB CONC 33 g/dL (33-37); MEAN CORPUSCULAR VOLUME 87.7 fL (80-94); MONOCYTES # (AUTO) 0.7 K/uL (0.8-1.0); MONOCYTES % (AUTO) 11.5 % (1.7-9.3); NEUTROPHILS # (AUTO) 3.5 K/uL (1.8-7.7); NEUTROPHILS % (AUTO) 54.7 % (42.2-75.2); PLATELET COUNT (AUTO) 278 K/uL (140-450); RED BLOOD CELL COUNT(AUTO) 4.59 MIL/uL (4.20-6.10); RED CELL DISTRIBUTION WIDTH 14.4 % (11.6-13.7); WHITE BLOOD COUNT (AUTO) 6.5 K/uL (4.8-10.8)
--- NOTE | 2021-02-08 15:34 | NUR ---
PT CURRENTLY REFUSING PAIN MEDICATION DUE TO PAIN RELIEF AT THIS TIME
[2021-02-08 16:07] LABS: ANION GAP 14.9 (8-16); CARBON DIOXIDE 26.1 mmol/L (21-32); CREATININE 1.1 mg/dL (0.6-1.3); TOTAL BILIRUBIN 0.2 mg/dL (0.0-1.0)
--- NOTE | 2021-02-08 16:19 | NUR ---
Patient appears to be resting comfortably in bed. Vital Signs within normal limits. Respirations even and unlabored. PT PROVIDED WITH PILLOW AND WARM BLANKET BEDSIDE
[2021-02-08 16:20] VITALS: BP 112/63
[2021-02-08] MEDS ORDERED: ACET-2619 PO (16:54)
--- NOTE | 2021-02-08 17:25 | NUR ---
Patient discharged with v/s stable. Written and verbal after care instructions given and explained. Patient alert, oriented and verbalized understanding of instructions. Ambulatory with steady gait. All questions addressed prior to discharge. ID band removed. Patient advised to follow up with PMD. Rx of ACETAMINOPHEN given. Opportunity to ask questions provided and answered.
== END 2021-02-08 17:24 | disposition home or self-care (01) ==
LOC: MED 13:37
DX: R10.9 Unspecified abdominal pain (principal); Z90.49 Acquired absence of other specified parts of digestive tract; Z79.2 Long term (current) use of antibiotics; Z79.899 Other long term (current) drug therapy; Z20.822 Contact with and (suspected) exposure to COVID-19
CPT/HCPCS: 74018; 80053; 83690; 85025; 87426; 87804; 99284; Q0092; J1885

== ENCOUNTER 2023-11-07 16:45 | Emergency (ER) | payer MEDICAID ==
[~2023-11-07] VITALS: Ht 167.6 cm; Wt 91.3 kg
[~2023-11-07 16:45] MED LIST changes: +ACET-2619 PO; -LEVO750T51 PO; +LEVO750T75 PO
[2023-11-07 17:30] VITALS: BP 139/94; PULSE 115; RESP 18; TEMP 98.2; O2SAT 99
[2023-11-07] MEDS: KETOROLAC 30 MG/ML VIAL IM ONE (19:45)
[2023-11-07] MEDS ORDERED: IBUP-2213 PO (20:03)
[2023-11-07] MEDS ORDERED: METH-1681 PO (20:03)
[2023-11-07 20:20] VITALS: O2SAT 99
[2023-11-07 20:25] LABS: APPEARANCE,URINE CLEAR (CLEAR); BILIRUBIN,URINE NEGATIVE (NEGATIVE); BLOOD, URINE NEGATIVE (NEGATIVE); COLOR,URINE YELLOW (YELLOW); LEUKOCYTE ESTERASE ,URINE NEGATIVE (NEGATIVE); NITRITE, URINE NEGATIVE (NEGATIVE); PH,URINE 5.5 (5.0-9.0); PROTEIN,URINE NEGATIVE (NEGATIVE); UGLUCOSE NEGATIVE (NEGATIVE); UROBILINOGEN,URINE 0.2 EU/dL (0.2 - 1)
[2023-11-07 20:30] VITALS: BP 146/87; PULSE 99; RESP 16; O2SAT 98
== END 2023-11-07 21:27 | disposition home or self-care (01) ==
LOC: MED 16:45
DX: S76.012A Strain of muscle, fascia and tendon of left hip, initial encounter (principal); N50.812 Left testicular pain; Z11.3 Encounter for screening for infections with a predominantly sexual mode of transmission; R03.0 Elevated blood-pressure reading, without diagnosis of hypertension; Z79.899 Other long term (current) drug therapy; X58.XXXA Exposure to other specified factors, initial encounter; Y92.89 Other specified places as the place of occurrence of the external cause; Y93.89 Activity, other specified; Y99.8 Other external cause status
CPT/HCPCS: 73502; 76870; 81003; 87491; 96372; 99285; J1885; Q0092